=== PATIENT | female | born 1955 | race Caucasian/White ===

== ENCOUNTER 2021-01-04 09:10 | Outpatient (CLI) | payer MEDICARE, SELFPAY ==
--- NOTE | 2021-01-04 10:00 | NM_ITS ---
WS: [id number] NUCLEAR MEDICINE HIDA SCAN CLINICAL INFORMATION: R10.9 - Unspecified abdominal pain TECHNIQUE: Following intravenous administration of 4.7 mCi of technetium 99m mebrofenin, images of th e abdomen were obtained over the course of 60 minutes. Next, gallbladder ejection fraction was determ ined by obtaining preprandial and one-hour postprandial images of the gallbladder following oral christina stion of Ensure. COMPARISON: None. FINDINGS: Normal hepatic uptake at 5 minutes. Gallbladder is visualized by 20 minutes. No evidence of acute cho lecystitis. Normal common bile duct activity. Normal small bowel activity. No obstructing cholelithia sis. Gallbladder ejection fraction 0%. No significant gallbladder emptying at 69 minutes. Findings consist ent with gallbladder dysfunction and suspicious for chronic cholecystitis. NM/NM hepatobiliary w phar* [id number] IMPRESSION: 1. No significant gallbladder emptying post Ensure administration suspicious f or chronic cholecystitis. 2. No evidence of acute cholecystitis.
== END 2021-01-04 09:11 | disposition home or self-care (01) ==
PROVIDERS: PCP Internal Medicine; Visit Provider Surgery
DX: R10.9 Unspecified abdominal pain (principal)
CPT/HCPCS: 78227; A9537

== ENCOUNTER → 2021-02-15 14:54 | Outpatient (BNVA) | payer MEDICARE, MEDICAID, SELFPAY | PROVIDERS: PCP Internal Medicine; Visit Provider Surgery | DX: K21.9 Gastro-esophageal reflux disease without esophagitis (principal); Z86.010 Personal history of colon polyps; Z20.822 Contact with and (suspected) exposure to COVID-19 | CPT/HCPCS: 87635 ==

== ENCOUNTER 2021-02-22 08:41 | Day surgery (SDC) | payer MEDICARE, MEDICAID, SELFPAY ==
[2021-02-20 09:30] VITALS: BMI 46.5
--- NOTE | 2021-02-22 08:55 | ANES.PREANE2 ---
Pre-Anesthetic Assessment Pre-Anesthetic Assessment: Height/Weight: Height 1.6 m Weight 119.295 kg Preop Diagnosis: gerd Proposed Procedure: Operation Date: 02/22/21 10:00 Proposed Procedures p EGD 92010 51743 z86.010 k21.9(Not Applicable) - Deejay Rivera MD s Colonoscopy(Not Applicable) - Deejay Rivera MD Familial anesthetic complications: woozy' after getting anesthesia gas for several days Was Beta Kristi taken within 24 hours: Yes Was Clonidine taken within 24 hours: N/A Last intake: > 8hrs Social: Social History: No alcohol and No tobacco Exam: Pre-Anes Outpt Exam: alert, oriented x 3, clear to auscultation bilaterally and regular rate & rhythm Airway: Cervical ROM: WNL MP: 3 Dentition: Chipped and Other CV/HEM: CV/HEM: HTN Hepatic: Comments: fatty liver GI: GI: GERD and PUD Metabolic: Metabolic: Morbid obesity Anesthetic Plan: ASA status: 2 Anesthesia: MAC Risk of > 500 ml blood loss (7ml/kg in children): No PFSH Anesthesia PFSH: Family History Other Cancer Diabetes Denies family history of CAD (coronary artery disease) Stroke Social History Smoking and tobacco status: never smoked Second hand smoke exposure: No Alcohol intake: never Desire information about alcohol rehabilitation?: No Lives independently: Yes Household members: spouse and children Marital status: Data Anesthesia Cardiac Studies: No Data to Display
[2021-02-22] MEDS: sodium chloride 0.9% 1,000 ML 30 ML IV (09:29)
[2021-02-22 09:30] VITALS: BP 133/76; PULSE 68; RESP 18; TEMP 36.8; O2SAT 97
--- NOTE | 2021-02-22 09:41 | W.PM.OPSUD ---
Surgery/Procedure H&P Update DATE OF PROCEDURE: February 22, 2021 DATE H&P PERFORMED: 02/15/21 H&P UPDATE INFORMATION: I have reviewed H&P completed within last 30 days, I have examined patient prior to procedure and No changes to prior documentation PREOP DIAGNOSIS: Epigastric discomfort and change in bowel habit PRIMARY INDICATION FOR PROCEDURE: The same PLANNED PROCEDURE: Operation Date: 02/22/21 10:00 Proposed Procedures p EGD [id number] z86.010 k21.9(Not Applicable) - Deejay Rivera MD s Colonoscopy(Not Applicable) - Deejay Rivera MD
[2021-02-22 09:47] LABS: Glucose Point of Care 182 mg/dL (70-110)
[2021-02-22 10:52] VITALS: BP 100/63; PULSE 64; RESP 16; TEMP 36.5; O2SAT 96
[2021-02-22 11:14] VITALS: BP 121/79; PULSE 63; RESP 16; O2SAT 100
--- NOTE | 2021-02-22 15:00 | ANE.PACU2 ---
Inpatient post-anesthesia follow up: Airway intact: Yes Vital signs: Temperature 97.7 F Pulse Rate 63 Respiratory Rate 16 Blood Pressure 121/79 Pulse Oximetry 100 Oxygen Delivery Me thod Room Air Oxygen Flow Rate Fraction of Inspir ed Oxygen Hydration adequate: Yes Nausea and vomiting: No Pain level: 1 Mental status: Baseline
[2021-02-23 06:50] LABS: H. Pylori / CLO Test Negative
== END 2021-02-22 11:25 | disposition home or self-care (01) ==
PROVIDERS: PCP Internal Medicine; Visit Provider Surgery
PROC: 0DJ08ZZ Inspection of Upper Intestinal Tract, Via Natural or Artificial Opening Endoscopic (ICD-10-PCS; CPT 43235; principal; 2021-02-22 10:00)
PROC: 0DJD8ZZ Inspection of Lower Intestinal Tract, Via Natural or Artificial Opening Endoscopic (ICD-10-PCS; CPT 45378; 2021-02-22 10:00)
DX: Z86.010 Personal history of colon polyps (principal); R10.13 Epigastric pain; R19.4 Change in bowel habit; D12.2 Benign neoplasm of ascending colon; K21.00 Gastro-esophageal reflux disease with esophagitis, without bleeding; K29.70 Gastritis, unspecified, without bleeding; I10 Essential (primary) hypertension; E66.01 Morbid (severe) obesity due to excess calories; Z68.42 Body mass index [BMI] 45.0-49.9, adult; Z87.11 Personal history of peptic ulcer disease
CPT/HCPCS: 36416; 43239; 45385; 82962; 87077; 88305; 96360; 96361; J2704; J7030

== ENCOUNTER → 2021-03-22 14:42 | Outpatient (BNVA) | payer MEDICARE, MEDICAID, SELFPAY | PROVIDERS: PCP Internal Medicine; Visit Provider Surgery | DX: R10.9 Unspecified abdominal pain (principal); Z20.822 Contact with and (suspected) exposure to COVID-19 | CPT/HCPCS: 87635 ==

== ENCOUNTER 2021-03-27 06:13 | Day surgery (SDC) | payer MEDICARE, MEDICAID, SELFPAY ==
[2021-03-23 16:56] VITALS: BMI 45.8
[2021-03-27] VITALS (9 sets, daily range): BP systolic 142–170; BP diastolic 64–122; PULSE 69–86; RESP 9–18; TEMP 36.2–36.7; O2SAT 91–98
--- NOTE | 2021-03-27 06:31 | W.PM.OPSFHP ---
Same Day Surgery H&P Indication for Procedure/HPI DATE OF PROCEDURE: March 27, 2021 CHIEF COMPLAINT/INDICATIONFOR SURGICAL PROCEDURE: Sera gary PREOP DIAGNOSIS: Chronic cholecystitis PLANNED PROCEDRUE: Operation Date: 03/27/21 07:30 Proposed Procedures p Laparoscopic Cholecystectomy 59823 R10.11(Not Applicable) - Deejay Rivera MD 02/15/2021 patient comes today status post HIDA scan and she did encounter symptoms the form of bloating and abdominal discomfort with the HIDA scan. Report of the HIDA scan did show 1. No significant gallbladder emptying post Ensure administration suspicious for chronic cholecystitis. 2. No evidence of acute cholecystitis. 03/27/2021 Patient comes today for elective laparoscopic cholecystectomy possible open, after being cleared by cardiology service. Patient dropped her weight from 269 pounds to 259 pounds roughly, on her scale yet today when had her weight measured on our scale it shows to 261 pounds. Patient has been on liquid protein diet for the past 10 days and she lost about 4 pounds. Lab work has been reviewed including LFTs from outside facility ROS All systems have been reviewed negative except as per the above or per problem list Medications/Allergies* Home Medications Medication Instructions Recorded Confirmed Type amlodipine 10 mg tablet 10 mg PO DAILY 12/11/20 03/23/21 History fluticasone propionate 50 1 spray INTRANASAL DAILY 12/11/20 03/23/21 History mcg/actuation nasal spray,suspension glipizide 10 mg tablet 10 mg PO DAILY 12/11/20 03/23/21 History insulin NPH human semi-syn 100 See Rx Instructions .ROUTE .COMPLEX 12/11/20 03/23/21 History unit/mL subcutaneous cartridge lisinopril 40 mg tablet 40 mg PO DAILY 12/11/20 03/23/21 History omeprazole 20 mg capsule,delayed 40 mg PO DAILY 12/11/20 03/23/21 History release repaglinide 2 mg tablet 2 mg PO TID 12/11/20 03/23/21 History metoclopramide HCl 10 mg PO Q6H 02/20/21 03/23/21 History L. acidophilus,casei,rhamnosus 50 1 cap PO DAILY 03/19/21 03/23/21 History billion cell capsule,delayed release atenolol 50 mg tablet 50 mg PO BID tab 03/19/21 03/23/21 History calcium citrate 250 mg 2 tab PO DAILY tab 03/19/21 03/23/21 History calcium-vitamin D3 5 mcg (200 unit) tablet Allergies/Adverse Reactions Allergy/AdvReac Type Severity Reaction Status Date / Time Sulfa (Sulfonamide Allergy Severe Unknown Verified 03/27/21 06:33 Antibiotics) meclizine Allergy Unknown passed out Verified 03/27/21 06:33 lidocaine AdvReac PATIENT Verified 03/27/21 06:33 STATES SHE IS SENSITIVE TO THE AMOUNT USED Pertinent History/Comorbid Conditions* Medical History (Updated 03/20/21 @ 17:41 by Roz Fajardo MD) Diabetes GERD (gastroesophageal reflux disease) Hypertension Surgical History (Updated 03/19/21 @ 15:39 by Roz Fajardo MD) History of colonoscopy with polypectomy 2014 History of tubal ligation 1988 Family History (Updated 12/11/20 @ 11:04 by Carolyn Gaitan) Diabetes Cancer Denies family history of CAD (coronary artery disease) Stroke Social History Second hand smoke exposure: No Alcohol intake: never Desire information about alcohol rehabilitation?: No Lives independently: Yes Household members: spouse and children Marital status: Pertinent Exam Findings alert, oriented x 3, clear to auscultation bilaterally, regular rate & rhythm and procedure specific exam findings (Abdominal examination nontender nondistended soft morbidly obese) Recommendations Surgery/Procedure today (Laparoscopic cholecystectomy possible open) Other Plans: Plan of care; After thorough history physical examination and reviewing the chart and images with my personal intrepreatation.I counseled the patient for laparoscopic cholecystectomy possible open, indications risks including but not limited injury to the common bile duct and/or other viscera,that may require potential future surgical interventions including but not limited to ERCP and or laparatomy that may include Hepatobiliary surgery.Benefits and alternatives all discussed with the patient, and patient did agree to proceed accordingly. All questions have been answered and all concerns have been addressed to patient's satisfaction. Rationale was carefully and clearly discussed with the patient.Appropriate informed consent have been reviewed and signed. Patient understands on attempt for gallbladder surgery, should her liver shows remarkable enlargement and hinder safe surgical intervention, procedure could be aborted. Patient understands as well as her spouse and she is willing to proceed accordingly. 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
[2021-03-27] MEDS: sodium chloride 0.9% 1,000 ML 30 ML IV (06:47)
[2021-03-27] MEDS: acetaminophen 1,000 MG/100 ML PIGGYBACK 400 MG IV (06:47)
[2021-03-27] MEDS: heparin 5,000 unit/mL INJ 1 mL 3000 UNIT SUBCUT (06:48)
[2021-03-27 06:56] LABS: Glucose Point of Care 110 mg/dL (70-110)
--- NOTE | 2021-03-27 06:59 | ANES.PREANE2 ---
Pre-Anesthetic Assessment Pre-Anesthetic Assessment: Height/Weight: Height 1.6 m Weight 118.614 kg Temp Pulse Resp BP Pulse Ox 97.7 F 69 18 150/76 98 03/27/21 06:25 03/27/21 06:25 03/27/21 06:25 03/27/21 06:25 03/27/21 06:25 Preop Diagnosis: Chronic cholecystitis Proposed Procedure: Operation Date: 03/27/21 07:30 Proposed Procedures p Laparoscopic Cholecystectomy 76796 R10.11(Not Applicable) - Deejay Rviera MD Familial anesthetic complications: Confusion post-anesthesia Was Beta Kristi taken within 24 hours: Yes Was Clonidine taken within 24 hours: N/A Last intake: Intake Last Liquid Date 03/27/21 Last Liquid Time 04:45 Last Solid Date 03/27/21 Last Solid Time 19:00 Social: Social History: No alcohol and No tobacco Exam: Pre-Anes Outpt Exam: alert, oriented x 3, clear to auscultation bilaterally and regular rate & rhythm Airway: Cervical ROM: WNL MP: 3 Dentition: Chipped CV/HEM: CV/HEM: HTN Hepatic: Comments: fatty liver GI: GI: GERD and PUD Metabolic: Metabolic: Morbid obesity Anesthetic Plan: ASA status: 3 Anesthesia: General Risk of > 500 ml blood loss (7ml/kg in children): No Meds/Allergies Current Medications: Current Medications Generic Name Dose Route Start Last Admin Trade Name Freq PRN Reason Stop Dose Admin Sodium Chloride 1,000 mls @ 30 ml s/hr 03/27/21 06:30 03/27/21 06:47 Sodium Chloride 0.9% IV 03/28/21 06:29 30 mls/hr .Q24H JACQUELIN Administration PFSH Anesthesia PFSH: Medical History (Updated 03/20/21 @ 17:41 by Roz Fajardo MD) Diabetes GERD (gastroesophageal reflux disease) Hypertension Surgical History (Updated 03/19/21 @ 15:39 by Roz Fajardo MD) History of colonoscopy with polypectomy 2014 History of tubal ligation 1988 Family History Other Cancer Diabetes Denies family history of CAD (coronary artery disease) Stroke Social History Second hand smoke exposure: No Alcohol intake: never Desire information about alcohol rehabilitation?: No Lives independently: Yes Household members: spouse and children Marital status: Data Anesthesia Other Labs: Laboratory Results - last 48 hr 03/27/21 06:44 POC Glucose 110 Cardiac Studies: No Data to Display
[2021-03-27] MEDS: ampicillin-sulbactam 3 GM in sodium chloride 0.9% (plus) 50 ML IV (07:39)
--- NOTE | 2021-03-27 08:53 | P.OP_ITS ---
Operative Report Date of procedure: March 27, 2021 Pre-op Diagnosis: Chronic cholecystitis Post-op diagnosis: same Post-op Findings: Hepatomegaly due to fatty liver Procedure Done: Laparoscopic cholecystectomy Specimens removed/disposition: Gallbladder and contents Surgeon: Deejay Rivera Childhood Development Teacher: Surgical techisabella Lopez fire alarm technician student Sandra Circulating nurses Pricila and Margarita Anesthesia: General (GETA spinner iron Abida) Estimated blood loss (mL): 15 IV fluids (mL): 800 Condition: stable Disposition: same day Brief History: Symptomatic gallbladder Procedure: Patient was identified in the holding area and taken back to the operative suite, placed in supine position intubated by anesthesia . Time-out was done verifying the patient's name/date of /planned procedure and destination after the procedure, all were in agreement. SCDs confirmed to be functioning, preoperative antibiotics administered per protocol, and beta jayro protocol was confirmed. Heparin subcu was given to the patient on-call to the OR. Patient was appropriately secured to the table, footboard was applied to the OR table, before prep and drape anesthesia was asked to tilt the table back and forth to make sure that the patient is appropriately secured and she was. Prep and drape of the abdomen was done under the usual sterile technique, followed by that transverse infraumbilical skin incision coinciding with the previous scar,skin incision was done by a 11 blade knife, and stay sutures were applied to the fascia and Randolph trocar technique was used to enter the abdominal without injuring any abdominal viscera, started by low flow gas in sufflation followed by a high flow, started with a 10 mm laparoscope and under direct vision there was no evidence of any injuries, the scope then switched to a 30? ,10 millimeter scope and under direct visualization 5 millimeter trocar was inserted in the epigastric region followed by two 5 mm trocars were inserted in the right upper quadrant that was done after injection of local lidocaine 2% at all incision sites. Gallbladder showed chronic cholecystitis with adhesions, gallbladder showed hydrops remarkably distended. Liver was noticed to be enlarged likely due to fatty infiltration of the liver. Patient was then positioned in the head up and tilted to the left Ratcheted forceps were introduced into the lateral most 5mm port and was applied unto the fundus of the gallbladder cephalad and using Bullet forceps the infundibulum of the gallbladder was retracted laterally. Because of the remarkably distended gallbladder I elected to use a 5 mm tenaculum to hold onto the fundus of the gallbladder for better retraction under direct visualization. Using [place] forceps then L-hook cautery to dissect the peritoneum overlying the Calot's triangle which was then opened medially and laterally until the cystic duct and the cystic artery were skeletonized. Dissection was carried along the body of the gallbladder and after ensuring critical view of safety was identfied. Cystic duct and cystic artery where seen connected to the gallbladder. Clips were applied on the cystic duct towards the common bile duct 1 towards the gallbladder then divided is in sharp scissors, 2 clips were then applied onto the cystic artery and 1 towards the gallbladder and divided by sharp scissors. Dissection was then carried along of the gallbladder from the gallbladder fossa using cautery as well as sharp dissection with heat energy. The gallbladder then was dissected out from the gallbladder fossa totally , cholecystectomy was then achieved and was placed in an Endo Catch bag and then retrieved from the Randolph trocar site under direct visualization using a 5 mm 30? scope through the epigastric trocar, specimen was then passed to the circulating nurse to go for permanent pathology,irrigation and hemostasis was done to the gallbladder fossa after hemostasis was secured, final survey laparoscopy was done that showed no injuries. There was some spillage of bile from the gallbladder upon grasping. Appropriate and thorough irrigation was achieved followed by suction. Gas was allowed to deflate,Trocars were then taken out under direct vision there was no evidence of bleeding The Infraumbilical fascial defect was closed using interrupted #1 PDS under direct visualization, thorough irrigation of all incisions was done followed by 2-0 Vicryl for deep subdermal then skin raúl, followed by dry dressing Specimen was passed to the circulating nurse for permanent pathology. No drains were placed and the patient patient got extubated and was taken to recovery area in a stable condition. Count of sponges, needles and instruments were completed at the end of the procedure I was present for the whole entire procedure.
--- NOTE | 2021-03-27 09:23 | SUR.PHASEI ---
09 PT TO PACU AWAKE , NAUSEATED AND EMESIS APPROX 100 ML DARK GREEN BILE , SEE NAUSEA MED GIVEN BY MANAGER MEDICAL AFFAIRS AT BEDSIDE. PT ON RA GOOD RESP EFFORT VSS ABD LARGE SOFT WITH 4 SITES D/I HOB UP TO 45 DEGREES MONITOR SR.
[2021-03-27] MEDS: HYDROcodone-acetaminophen 5-325 mg Tablet 1 TAB PO (10:12)
--- NOTE | 2021-03-27 15:37 | ANE.PACU2 ---
Inpatient post-anesthesia follow up: Airway intact: Yes Vital signs: Temperature 98.1 F Pulse Rate 71 Respiratory Rate 14 Blood Pressure 142/71 Pulse Oximetry 94 Oxygen Delivery Me thod Room Air Oxygen Flow Rate Fraction of Inspir ed Oxygen Hydration adequate: Yes Nausea and vomiting: No Pain level: 2 Mental status: Baseline
== END 2021-03-27 11:24 | disposition home or self-care (01) ==
PROVIDERS: PCP Internal Medicine; Visit Provider Surgery
PROC: 0FT44ZZ Resection of Gallbladder, Percutaneous Endoscopic Approach (ICD-10-PCS; CPT 47562; principal; 2021-03-27 07:30)
DX: K80.10 Calculus of gallbladder with chronic cholecystitis without obstruction (principal); I10 Essential (primary) hypertension; K21.9 Gastro-esophageal reflux disease without esophagitis; Z87.11 Personal history of peptic ulcer disease; E66.01 Morbid (severe) obesity due to excess calories; Z68.42 Body mass index [BMI] 45.0-49.9, adult; E11.9 Type 2 diabetes mellitus without complications
CPT/HCPCS: 47562; 36416; 82962; 88304; 96365; 96372; J0295; J1100; J1644; J2405; J2704; J2710; J3010; J3490; J7030